=== PATIENT | male | born 1950 | race Caucasian/White ===

== ENCOUNTER 2019-01-12 08:34 | Day surgery (SDC) | payer MEDICARE ==
[2019-01-09 11:18] VITALS: BMI 22.1
[~2019-01-12 08:34] MED LIST: LACTATED RINGERS 1,000 ML IV SCH; LIDOCAINE 1% 20 ML VIAL (10MG/ML) FOR IV START INTRADERMA PRN
[2019-01-12 09:05] VITALS: RESP 16; TEMP 97.8
[2019-01-12] MEDS ORDERED: PROPOFOL 10 MG/ML 20 ML VIAL IV ONE (09:20)
--- NOTE | 2019-01-12 09:47 | P.PCN ---
Date of Procedure: 01/12/19 Procedure(s) Performed: BRIEF HISTORY: Patient is a 68-year-old pleasant, white male scheduled for an elective colonoscopy as a part of screening for colorectal neoplasia. His mother was diagnosed with colon cancer at age 56. PROCEDURE PERFORMED: Colonoscopy. PREOPERATIVE DIAGNOSIS: Screening for colon cancer/family history of colon cancer. IV sedation per Anesthesia. PROCEDURE: After informed consent was obtained, the patient, was brought into the endoscopy unit. IV sedation was administered by Anesthesia under continuous monitoring. Digital rectal examination was normal. Initially the Olympus CF-160 flexible video colonoscope was then inserted in the rectum, gradually advanced into the cecum without any difficulty. Careful examination was performed as the scope was gradually being withdrawn. Ileocecal valve and the appendiceal orifice were visualized and appeared normal. Prep was excellent. Mucosa of the cecum, ascending colon, transverse colon, descending colon, sigmoid colon, and rectum appeared normal. Retroflexion was performed in the rectum and no lesions were seen. The patient tolerated the procedure well. IMPRESSION: Normal-appearing colon from rectum to cecum with no evidence of colon rectal neoplasia . RECOMMENDATIONS: Findings of this examination were discussed with the patient as well as his family. He was advised to have a repeat screening colonoscopy in 5 years because of family history of colon cancer..
[2019-01-12 10:04] VITALS: BP 147/87; PULSE 63
== END 2019-01-12 10:36 | disposition home or self-care (01) ==
LOC: ORWHC2ENDO 08:34
PROVIDERS: ATTEND Internal Medicine Gastroenterology
DX: Z12.11 Encounter for screening for malignant neoplasm of colon (principal); Z80.0 Family history of malignant neoplasm of digestive organs; I10 Essential (primary) hypertension; K21.9 Gastro-esophageal reflux disease without esophagitis; N42.9 Disorder of prostate, unspecified; M19.90 Unspecified osteoarthritis, unspecified site; Z97.2 Presence of dental prosthetic device (complete) (partial); Z79.891 Long term (current) use of opiate analgesic; Z79.82 Long term (current) use of aspirin; Z79.899 Other long term (current) drug therapy
CPT/HCPCS: G0105; J2704; 45378

== ENCOUNTER → 2021-04-24 | Outpatient (CLI) | payer MEDICARE ==
--- NOTE | 2021-04-24 17:10 | XR ---
EXAMINATION TYPE: XR ribs RT w pa chest xray DATE OF EXAM: 04/24/2021 COMPARISON: None HISTORY: Intercostal pain TECHNIQUE: 2 view right ribs FINDINGS: There is an anterior ninth rib fracture. No pneumothorax is evident. Remaining ribs appear intact. IMPRESSION: 1. Anterior ninth rib fracture.
== END | disposition home or self-care (01) ==
LOC: RADXRYALE 11:12
PROVIDERS: ATTEND Nurse Practitioner
DX: S22.31XA Fracture of one rib, right side, initial encounter for closed fracture (principal); X58.XXXA Exposure to other specified factors, initial encounter

== ENCOUNTER 2024-03-02 08:23 | Day surgery (SDC) | payer MEDICARE ==
[2024-02-29 10:37] VITALS: BMI 22.6
[~2024-03-02 08:23] MED LIST changes: -LIDOCAINE 1% 20 ML VIAL (10MG/ML) FOR IV START INTRADERMA PRN
[2024-03-02 08:55] VITALS: RESP 16; TEMP 96.9
[2024-03-02] MEDS: IV FLUID CONTINUATION 1,000 ML IV ONE (09:04)
[2024-03-02] MEDS ORDERED: PROPOFOL 10 MG/ML 20 ML VIAL IV ONE (09:42)
--- NOTE | 2024-03-02 09:59 | P.PCN ---
Date of Procedure: 03/02/24 Procedure(s) Performed: BRIEF HISTORY: Patient is a 74-year-old pleasant white male scheduled for an elective colonoscopy as a part of screening colon cancer and family history of colon cancer. His mother was diagnosed with colon cancer at age 56. PROCEDURE PERFORMED: Colonoscopy. PREOPERATIVE DIAGNOSIS: Screening for colon cancer and family history of colon cancer. IV sedation per Anesthesia. PROCEDURE: After informed consent was obtained, the patient, was brought into the endoscopy unit. IV sedation was administered by Anesthesia under continuous monitoring. Digital rectal examination was normal. Initially the Olympus CF-160 flexible video colonoscope was then inserted in the rectum, gradually advanced into the cecum without any difficulty. Careful examination was performed as the scope was gradually being withdrawn. Ileocecal valve and the appendiceal orifice were visualized and appeared normal. Prep was excellent. Mucosa of the cecum, ascending colon, transverse colon, descending colon, sigmoid colon, and rectum appeared normal. Scattered sigmoid diverticulosis. Retroflexion was performed in the rectum and no lesions were seen. The patient tolerated the procedure well. IMPRESSION: Normal-appearing colon from rectum to cecum with no evidence of colorectal neoplasia Scattered sigmoid diverticulosis. RECOMMENDATIONS: Findings of this examination were discussed with the patient as well as his family. He was advised to have repeat screening colonoscopy in 5 years because of the family history of colon cancer..
[2024-03-02 10:39] VITALS: BP 161/72; PULSE 62
== END 2024-03-02 10:52 | disposition home or self-care (01) ==
LOC: ORWHC2ENDO 08:23
PROVIDERS: ATTEND Internal Medicine Gastroenterology
DX: Z12.11 Encounter for screening for malignant neoplasm of colon (principal); K57.30 Diverticulosis of large intestine without perforation or abscess without bleeding; Z80.0 Family history of malignant neoplasm of digestive organs; Z79.899 Other long term (current) drug therapy
CPT/HCPCS: J2704; G0105; 45378